=== PATIENT | female | born 1940 | race Caucasian/White ===

== ENCOUNTER 2017-07-12 02:33 | Emergency (ER) | payer OTHER ==
[~2017-07-12] VITALS: Ht 160 cm; Wt 83.0 kg
[2017-07-12 02:44] VITALS: TEMP 36.5; Ht 160 cm; Wt 83.0 kg
--- NOTE | 2017-07-12 02:57 | EMERGENCY ROOM VISIT NOTE ---
History Report prepared by Bobbi: Mayra Hull Under the Supervision of: Keven ParadaO. First contact with patient: 02:39 Chief Complaint: FALL Stated Complaint: KNEE PAIN History of Present Illness The patient is a 76 year old female who presents to the Emergency Room brought in by EMS with complaints of persistent right knee pain secondary to a fall 1.5 hours ago. Per son, the patient may have slid on her clothes when getting up to use the bathroom. Per , the patient was getting up to go the bathroom. She was out shopping yesterday. She felt fine prior to going to bed. She denies any head injury or back pain. She has not gotten up to walk at all since the fall. Source of History: patient, family, spouse/significant other Onset: 1.5 hours ago Position: knee (right) Timing: other (persistent) Associated Symptoms: No back pain Note: She denies any head injuries. Review of Systems See HPI for pertinent positives & negatives. A total of 10 systems reviewed and were otherwise negative. Past Medical & Surgical No other pertinent personal past medical history obtained. Family History No pertinent family history Social History Smoking Status: Former Smoker Housing Status: lives with family Occupation Status: unemployed Current/Historical Medications Scheduled Atorvastatin (Lipitor), 80 MG PO DAILY Losartan Potassium (Cozaar), 50 MG PO DAILY Memantine Hcl (Namenda), 10 MG PO BID Potassium Chloride (Micro-K Ext Rel), 10 MEQ PO DAILY Sertraline (Zoloft), 75 MG PO HS [transdermal patch], 1 PATCH EXT DAILY Scheduled PRN Ibuprofen (Motrin), 800 MG PO TIDM PRN for Pain Naproxen (Aleve), 220 MG PO DIRECTED PRN for Pain Allergies Coded Allergies: No Known Allergies (Unverified , 07/12/17) Physical Exam Vital Signs Date Time Temp Pulse Resp B/P (MAP) Pulse Ox O2 Delivery O2 Flow Rate FiO2 07/12/17 04:19 76 20 136/68 98 Room Air 07/12/17 03:03 65 20 151/99 96 Room Air 07/12/17 02:45 68 07/12/17 02:44 36.5 72 20 177/108 96 Room Air Physical Exam HEENT: Head - normocephalic and atraumatic. Pupils are equal, round, and reactive to light. Extraocular eye muscles are intact and sclera are anicteric. Nose - moist nasal mucosa without evidence of trauma or discharge. Mouth - moist buccal mucosa with no trauma to the teeth or signs of malocclusion. Neck: The neck is supple and there is no pain to palpation over the posterior cervical spine and no obvious step-offs or deformities. There is no JVD or tracheal deviation. Chest: There are no signs of deformities, contusions or abrasions to the chest wall. There is no obvious crepitus or paradoxical chest rise. Heart: Regular, rate, and rhythm. There is a normal S1 and S2 with no murmurs, clicks, or gallops appreciated. Lungs: Clear to auscultation bilaterally with no wheezes, rales, or rhonchi. Abdomen: Soft, completely nontender, nondistended, with good bowel sounds. There is no sign of trauma such as contusions, abrasions or penetrations. There are no palpable pulsatile masses or hepatosplenomegaly. There is no guarding, rigidity, or rebound noted. Pelvis: Stable to rock and compression. Extremities: No obvious trauma, deformities, contusions, or edema. There are easily palpable peripheral pulses. Winces with pain to palpation of the right hip and medial aspect of right knee. Neuro: The patient is awake and alert and easily able to follow commands. Muscle strength is 5 out of 5 in all 4 extremities. Otherwise, neuro exam is unremarkable. Back: The entire thoracic, lumbar, and sacral spine were palpated. There are no obvious step-offs or deformities noted. There are no obvious signs of trauma such as contusions abrasions penetrations noted to the back. Medical Decision & Procedures ER Provider Diagnostic Interpretation: Radiology results as stated below per my review and interpretation: Right Knee XR: No obvious fractures. No obvious joint effusion. Right Hip XR: No obvious fracture. ED Course 0248: Past medical records reviewed. The patient was evaluated in room A3. A complete history and physical exam was performed. The patient went for plain films of the right hip and right knee 0356: I reassessed the patient at this time. I put her knee and hip through FROM. No pain in her hip and slight pain in her right knee. She will go through an ambulatory trial. I discussed the results and treatment plan with the patient. I answered all pertaining questions that had. He expressed understanding and verbalized agreement. The patient will be discharged home. 0432: The patient was able to walk. Medical Decision The patient is a 76 year old female who presents to the ED with right knee pain. Differential diagnosis includes right hip fracture, right knee fracture, lower extremity contusion, and mechanical fall. This is a 68-year-old female patient who slid from her bed on the floor. She did not strike her head or lose consciousness. She was unable to get up from the floor or bear weight and on the right lower extremity. She complained of right knee pain. On physical exam, she had right hip pain. X-ray showed no evidence of acute fracture in the right hip or right knee. She was able to bear weight without difficulty. I talked to the family about some fall precautions. Medication Reconcilliation Current Medication List: was personally reviewed by me Blood Pressure Screening Patient's blood pressure: Normal blood pressure Impression Primary Impression: Fall Scribe Attestation The scribe's documentation has been prepared under my direction and personally reviewed by me in its entirety. I confirm that the note above accurately reflects all work, treatment, procedures, and medical decision making performed by me. Departure Information Dispostion Home / Self-Care Referrals Raciel Diaz MD Forms HOME CARE DOCUMENTATION FORM, IMPORTANT VISIT INFORMATION Patient Instructions My [facility] Additional Instructions MOve slowly. You may be sore tomorrow from the fall. Use tylenol for pain Problem Qualifiers Primary Impression: Fall Encounter type: initial encounter Qualified Codes: W19.XXXA - Unspecified fall, initial encounter
[2017-07-12] MEDS ORDERED: SERT50TA PO (03:13)
[2017-07-12] MEDS ORDERED: LOSA50TA6 PO (03:14)
[2017-07-12] MEDS ORDERED: ATOR-26 PO (03:15)
[2017-07-12] MEDS ORDERED: POTA10CA28 PO (03:15)
[2017-07-12] MEDS ORDERED: IBUP-1428 PO (03:16)
[2017-07-12] MEDS ORDERED: MEMA10TA PO (03:17)
[2017-07-12] MEDS ORDERED: NAPR1TAB9 PO (03:18)
[2017-07-12] MEDS ORDERED: [UNRECOGNIZED DRUG - OTHER] EXT (03:24)
[2017-07-12 04:19] VITALS: BP 136/68; PULSE 76; O2SAT 98
--- NOTE | 2017-07-12 07:18 | DIAGNOSTIC IMAGING REPORT ---
R HIP UNILATERAL 2 VIEWS CLINICAL HISTORY: Right hip pain status post trauma COMPARISON: None. DISCUSSION: No fractures or dislocations are visualized. The joint space appears well-preserved for age. IMPRESSION: No fractures or dislocations identified. Electronically signed by: Matthew Engel M.D. 07/12/2017 7:17 AM Dictated Date/Time: 07/12/2017 7:16 AM
--- NOTE | 2017-07-12 07:19 | DIAGNOSTIC IMAGING REPORT ---
R KNEE 2 VIEWS ROUTINE CLINICAL HISTORY: Right knee pain status post trauma COMPARISON: None. DISCUSSION: The bones are mildly osteopenic. There are mild osteoarthritic changes present. No acute fractures or dislocations are visualized. IMPRESSION: No acute fractures or dislocations identified. Electronically signed by: Matthew Engel M.D. 07/12/2017 7:18 AM Dictated Date/Time: 07/12/2017 7:17 AM
== END 2017-07-12 04:40 | disposition home or self-care (01) ==
LOC: EDBD 02:33 → C.EDA 02:37
DX: M25.561 Pain in right knee (principal); M25.551 Pain in right hip; W01.0XXA Fall on same level from slipping, tripping and stumbling without subsequent striking against object, initial encounter; Z87.891 Personal history of nicotine dependence; Z79.899 Other long term (current) drug therapy